=== PATIENT | female | born 1970 ===

== ENCOUNTER 2023-04-17 10:22 | Inpatient (IN) | payer OTHER ==
[~2023-04-17] VITALS: Ht 167.6 cm; Wt 70.3 kg
[2023-04-23] MEDS ORDERED: HYOSCYAMINE0.125 M1 SL (10:47)
[2023-04-23] MEDS ORDERED: PERCOCET 5-3251 EACH PO (10:48)
== END 2023-04-23 13:12 | disposition home or self-care (01) | DRG 331 ==
LOC: O/R 04-20 06:25 → SURH 04-20 11:15
PROVIDERS: ADMIT Surgery; ATTEND Surgery
PROC: 07BB4ZZ Excision of Mesenteric Lymphatic, Percutaneous Endoscopic Approach (ICD-10-PCS; 2023-04-20)
PROC: 0DTF4ZZ Resection of Right Large Intestine, Percutaneous Endoscopic Approach (ICD-10-PCS; principal; 2023-04-20 18:30)
DX: C18.2 Malignant neoplasm of ascending colon (principal); R19.4 Change in bowel habit; R59.0 Localized enlarged lymph nodes; Z20.822 Contact with and (suspected) exposure to COVID-19